=== PATIENT | male | born 1985 | race Caucasian/White ===

== ENCOUNTER 2020-02-25 20:20 | Emergency (ER) | payer SELFPAY ==
[~2020-02-25] VITALS: Ht 193 cm; Wt 99.8 kg
[2020-02-25] MEDS ORDERED: PRIMATENE MIS11.7 GM INH (20:36)
[2020-02-25] MEDS ORDERED: CYCLOBENZAPRINE10 MG PO (21:56)
[2020-02-25] MEDS ORDERED: DICLOFENAC SODI75 MG PO (21:56)
== END 2020-02-25 22:17 | disposition home or self-care (01) ==
LOC: ED 20:20
DX: M54.5 Low back pain (principal); I10 Essential (primary) hypertension; J45.909 Unspecified asthma, uncomplicated; F17.200 Nicotine dependence, unspecified, uncomplicated; Z88.8 Allergy status to other drugs, medicaments and biological substances; Z79.899 Other long term (current) drug therapy; X50.9XXA Other and unspecified overexertion or strenuous movements or postures, initial encounter
CPT/HCPCS: 99283

== ENCOUNTER 2024-06-02 12:08 | Emergency (ER) | payer SELFPAY ==
[~2024-06-02] VITALS: Ht 193 cm; Wt 86.0 kg
[~2024-06-02 12:08] MED LIST: CYCLOBENZAPRINE10 MG PO; DICLOFENAC SODI75 MG PO; PRIMATENE MIS11.7 GM INH
[2024-06-02] MEDS ORDERED: ondansetron HCL 4 MG/2 ML VIAL IV PRN ×3 (13:00→20:15)
[2024-06-02] MEDS ORDERED: OXYCODONE HCL 5 MG TAB PO PRN ×2 (13:00→20:15)
[2024-06-02] MEDS ORDERED: HYDROmorphone HCL 1 MG/ML SYR IV PRN ×3 (13:00→20:15)
[2024-06-02] MEDS ORDERED: PROCHLORPERAZINE EDISYLATE 10 MG/2 ML VIAL IV PRN ×2 (13:00→20:15)
[2024-06-02] MEDS ORDERED: ALBUTEROL SULFATE 0.083% 3 ML VIAL INH PRN ×2 (13:00→20:30)
[2024-06-02] MEDS ORDERED: DEXTROSE 5% - LACTATED RINGERS 1,000 ML IV SCH ×2 (13:00→20:15)
[2024-06-02] MEDS ORDERED: CEFEPIME HCL/D5W 2 GM/100 ML PIGGYBACK IV SCH ×2 (13:00→21:00)
[2024-06-02] MEDS ORDERED: ACETAMINOPHEN 500 MG TAB PO PRN ×2 (13:00→20:30)
[2024-06-02] MEDS ORDERED: hydrALAZINE HCL 20 MG/ML VIAL IV PRN ×2 (13:00→20:15)
[2024-06-02] MEDS ORDERED: SODIUM CHLORIDE 0.9% 1,000 ML IV ONE (13:45)
[2024-06-02] MEDS ORDERED: ondansetron HCL 4 MG TAB PO ONE (13:45)
[2024-06-02] MEDS ORDERED: HYDROmorphone HCL 1 MG/ML SYR IV ONE (13:45)
[2024-06-02 13:49] LABS: BASOPHILS 0.4 % (0-2); EOSINOPHILS 1.3 % (0-6); HEMATOCRIT 45.6 % (35.0-50.0); HEMOGLOBIN 15.5 g/dL (12.0-18.0); LYMPHOCYTES 11.4 % (24-44); MCH 31.8 (27-36); MCHC 34.1 g/dl (30-36); MCV 93.3 fl (81-99); MONOCYTES 6.5 % (0-12); NEUTROPHILS 80.4 % (39-80); PLATELET COUNT 340 K/uL (140-440); RBC 4.88 M/ul (4.3-5.7); RDW 13.9 (10.5-15.0)
[2024-06-02 14:02] LABS: ALBUMIN 3.9 g/dL (3.4-5.0); ANION GAP 11.1 (7-21); BILIRUBIN, TOTAL 0.6 ng/dL (0.2-1.0); BUN/CREATININE RATIO 12.38 (6.0-28.6); CALCIUM 9.1 mg/dL (8.5-10.1); CREATININE, SERUM 1.05 mg/dL (0.70-1.30); POTASSIUM 4.1 mmol/L (3.5-5.1); PROTEIN, TOTAL 7.8 g/dL (6.4-8.2)
[2024-06-02] MEDS ORDERED: ondansetron HCL 4 MG/2 ML VIAL IV ONE (14:15)
[2024-06-02 17:25] LABS: BILIRUBIN, URINE NEGATIVE (negative); BLOOD/HGB, URINE NEGATIVE (Negative); KETONE, URINE NEGATIVE (Negative); LEUK ESTERASE, URINE NEGATIVE (negative); NITRITE, URINE NEGATIVE (negative); PH, URINE 6.5 (5-7)
[2024-06-02] MEDS ORDERED: LACTATED RINGER'S 1,000 ML IV SCH (19:45)
[2024-06-02] MEDS ORDERED: PIPERACILLIN/TAZOBACTAM 3.375 GM in DEXTROSE 5% 100 ML IV ONE (19:45)
[2024-06-02] MEDS ORDERED: DEXTROSE 5% 100 ML IV ONE (19:59)
[2024-06-02] MEDS ORDERED: ACETAMINOPHEN 650 MG SUPP PR PRN (20:15)
[2024-06-02] MEDS ORDERED: ACETAMINOPHEN 325 MG TAB PO PRN (20:15)
[2024-06-02] MEDS ORDERED: ENALAPRILAT DIHYDRATE 1.25 MG/ML VIAL IV ONE (20:45)
[2024-06-02 21:00] VITALS: BP 174/114
[2024-06-03] MEDS ORDERED: PANTOPRAZOLE SODIUM 40 MG/10 ML VIAL IV SCH ×2 (09:00→13:00)
== END 2024-06-02 21:00 | disposition left against medical advice (07) ==
LOC: ED 12:08 → MS 19:52
PROVIDERS: Emergency Medicine
DX: K35.80 Unspecified acute appendicitis (principal); K80.20 Calculus of gallbladder without cholecystitis without obstruction; I10 Essential (primary) hypertension; J45.909 Unspecified asthma, uncomplicated; F17.200 Nicotine dependence, unspecified, uncomplicated; Z53.29 Procedure and treatment not carried out because of patient's decision for other reasons; Z88.6 Allergy status to analgesic agent
CPT/HCPCS: 36415; 51798; 74176; 76870; 80053; 81003; 83690; 85025; 96374; 96375; 99284-25; J2405; J7030